=== PATIENT | female | born 1995 | race Two or more races ===

== ENCOUNTER 2024-01-22 18:37 | Emergency (ER) | payer OTHER ==
[~2024-01-22] VITALS: Ht 162.6 cm; Wt 56.7 kg
[2024-01-22] MEDS ORDERED: PENICILLIN G BENZATHINE LA 1.2 MMU/2 ML DISP.SYRIN IM STA (20:08)
[2024-01-22] MEDS ORDERED: DEXAMETHASONE SODIUM PHOSPHATE 4 MG/ML VIAL IM STA (20:09)
[2024-01-22] MEDS ORDERED: AMOX1TAB5 PO (20:16)
[2024-01-22] MEDS ORDERED: CEFTRIAXONE SODIUM 1,000 MG VIAL IM ONE (23:30)
== END 2024-01-23 00:43 | disposition home or self-care (01) ==
LOC: ER 18:39
DX: J02.8 Acute pharyngitis due to other specified organisms (principal); B96.89 Other specified bacterial agents as the cause of diseases classified elsewhere

== ENCOUNTER 2024-08-18 15:41 | Emergency (ER) | payer OTHER ==
[~2024-08-18] VITALS: Ht 157.5 cm; Wt 59.0 kg
[~2024-08-18 15:41] MED LIST: AMOX1TAB5 PO
[2024-08-18] MEDS ORDERED: 0.9 % SODIUM CHLORIDE 1,000 ML IV STA ×2 (16:45→19:47)
[2024-08-18] MEDS ORDERED: FAMOTIDINE/PF 20 MG/2 ML VIAL IV ONE (16:45)
[2024-08-18] MEDS ORDERED: PANTOPRAZOLE SODIUM 40 MG/VIAL VIAL IV ONE (17:00)
[2024-08-18] MEDS ORDERED: TRAMADOL HCL 50 MG TABLET PO ONE (17:00)
[2024-08-18] MEDS ORDERED: FAMOTIDINE/PF 20 MG/2 ML VIAL ONE (17:04)
[2024-08-18 17:39] LABS: BASO % 0.2 % (0.1-1.2); EOS # 0.02 (0.04-0.54); EOS % 0.1 % (0.7-7.0); HEMATOCRIT 32.6 % (34.1-44.9); HEMOGLOBIN 11.1 g/dL (11.2-15.7); LYMPH # 0.51 (1.18-3.74); LYMPH % 2.9 % (19.3-53.1); MEAN CORPUSCULAR HEMOGLOBIN 29.1 pg (25.6-32.2); MONO # 1.25 (0.24-0.82); MONO % 7.1 % (4.7-12.5); NEUT % 89.2 % (34.0-71.1); PLATELET COUNT 256 K/uL (163-369); RED BLOOD COUNT 3.81 M/uL (3.93-5.22); RED CELL DISTRIBUTION WIDTH 13.5 % (11.6-14.4)
[2024-08-18 17:56] LABS: INR 1.07; PARTIAL THROMBOPLASTIN TIME 27.3 SECONDS (22.0-34.0); PROTHROMBIN TIME 11.6 SECONDS (9.0-11.5)
[2024-08-18 18:02] LABS: ALBUMIN 4.1 gm/dL (3.4-5.0); ALKALINE PHOSPHATASE 52 U/L (50-136); ALT/SGPT 21 U/L (12-78); ANION GAP 11 (10.0-20.0); AST/SGOT 19 U/L (15-37); BILIRUBIN TOTAL 1.59 mg/dL (0.3-1.2); BLOOD UREA NITROGEN 9 mg/dL (7-18); BUN CREA RATIO 14 (7.0-25.0); CALCIUM 9.5 mg/dL (8.5-10.1); CARBON DIOXIDE 26 mEq/L (21-32); CHLORIDE 106 mmol/L (98-107); CREATININE SERUM 0.65 mg/dL (0.55-1.02); GFR 107.76; GLOBULINA 3.8 G/DL (2.4-3.5); GLUCOSE FASTING 104 mg/dL (65-100); LIPASE 31 U/L (13-75); OSMOLALITY SERUM 277 MOSM/KG (275-295); POTASSIUM 3.54 mEq/L (3.5-5.1); SODIUM 139 mmol/L (136-145); TOTAL PROTEIN 7.9 gm/dL (6.4-8.2)
[2024-08-18 18:04] LABS: INFLUENZA A AG NEGATIVE (NEGATIVE); INFLUENZA B AG NEGATIVE (NEGATIVE)
[2024-08-18 18:05] LABS: COVID-19 AG NEGATIVE (NEGATIVE)
[2024-08-18 18:06] LABS: HCG QUANTITATIVE < 1 mUI/mL (1-3)
[2024-08-18] MEDS ORDERED: CEFTRIAXONE SODIUM 2,000 MG VIAL IV ONE (20:00)
[2024-08-18] MEDS ORDERED: CEFTRIAXONE SODIUM 2,000 MG VIAL ONE ×2 (20:01→20:07)
[2024-08-18 21:13] LABS: URINE APPEARANCE Clear; URINE BILIRRUBIN Negative (NEGATIVE); URINE BLOOD Trace; URINE COLOR Yellow; URINE GLUCOSE Negative (NEGATIVE); URINE LEUKOCYTE Negative; URINE NITRATE Negative; URINE PROTEIN Trace (NEGATIVE); URINE UROBILINOGEN 0.2 E.U./dl
[2024-08-18 21:14] LABS: URINE BACTERIA 255.7 uL (0.0-1933); URINE EPITHELIAL CELLS 19.4 uL (0.0-38.8); URINE RBC 9.4 uL (0.0-20.8); URINE WBC 7.9 uL (0.0-23.2)
[2024-08-18 21:28] LABS: URINE KETONE 80 (NEGATIVE)
[2024-08-18 22:55] LABS: BASO % 0.2 % (0.1-1.2); HEMATOCRIT 28.1 % (34.1-44.9); LYMPH # 0.68 (1.18-3.74); LYMPH % 4.4 % (19.3-53.1); MEAN CORPUSCULAR HEMOGLOBIN 29.2 pg (25.6-32.2); RED BLOOD COUNT 3.29 M/uL (3.93-5.22); RED CELL DISTRIBUTION WIDTH 13.5 % (11.6-14.4)
[2024-08-18 22:58] LABS: MONO # 1.49 (0.24-0.82); MONO % 9.7 % (4.7-12.5); NEUT # 13.05 (1.56-6.13); NEUT % 85.3 % (34.0-71.1)
[2024-08-18 22:59] LABS: HEMOGLOBIN 9.6 g/dL (11.2-15.7); PLATELET COUNT 216 K/uL (163-369)
== END 2024-08-19 00:57 | disposition home or self-care (01) ==
LOC: ER 15:41
PROVIDERS: Emergency Medicine
DX: R10.13 Epigastric pain (principal); Z20.822 Contact with and (suspected) exposure to COVID-19